=== PATIENT | male | born 1985 | race Caucasian/White ===

== ENCOUNTER 2017-11-04 15:12 | Emergency (ER) | payer SELFPAY ==
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
[2017-11-04 16:02] VITALS: BP 157/76
== END 2017-11-04 16:28 | disposition home or self-care (01) ==
LOC: ED 15:12
DX: Z77.21 Contact with and (suspected) exposure to potentially hazardous body fluids (principal); Z04.2 Encounter for examination and observation following work accident
CPT/HCPCS: 86703; 86704; 86706; 86709; 86803; 87340; 99283